=== PATIENT | male | born 1980 | race Two or more races ===

== ENCOUNTER 2024-02-14 22:13 | Emergency (ER) | payer OTHER ==
[~2024-02-14] VITALS: Ht 182.9 cm; Wt 90.7 kg
[2024-02-15 06:31] VITALS: BP 122/81; TEMP 98.1; O2SAT 98
== END 2024-02-15 06:31 | disposition home or self-care (01) ==
LOC: ER 22:15
DX: F10.129 Alcohol abuse with intoxication, unspecified (principal); Y90.9 Presence of alcohol in blood, level not specified
CPT/HCPCS: 99283; 82962; A4223